=== PATIENT | male | born 1950 | race Caucasian/White ===

== ENCOUNTER 2021-01-02 07:02 | Day surgery (SDC) | payer MEDICARE, OTHER ==
[2021-01-02] MEDS ORDERED: Midazolam 1 MG/ML 2 ML SDV ONE (07:39)
[2021-01-02] MEDS ORDERED: Propofol 200 MG/20 ML SDV ONE (07:39)
[2021-01-02] MEDS ORDERED: fentaNYL 100 MCG/2 ML SDV ONE (07:39)
[2021-01-02] MEDS ORDERED: Sodium Chloride 0.9% 1,000 ML IV SCH (08:00)
--- NOTE | 2021-01-02 11:18 | OR ---
DATE OF PROCEDURE: 01/02/2021 SURGEON: Chucho Yoon MD PROCEDURE: Colonoscopy. FINDINGS: 1. Ascending colon polyp, approximately 8 mm, completely removed using hot snare wire device. 2. Transverse colon polyp, approximately 6 mm, completely removed using hot snare wire device. 3. Descending colon polyp, approximately 3 mm, completely removed using cold biopsy forceps. 4. Sigmoid colon polyp, approximately 3 mm, completely removed using cold biopsy forceps. COMPLICATIONS: None. FUGITIVE INVESTIGATOR: None. ANESTHESIA: MAC. PREOPERATIVE DIAGNOSIS: Screening colonoscopy. POSTOPERATIVE DIAGNOSIS: Screening colonoscopy. RISKS: Risks, benefits, alternatives, and limitations including, but not limited to infection, bleeding, perforation, false positives and false negatives were explained to the patient and he wished to proceed. PROCEDURE IN DETAIL: The patient was placed in left lateral decubitus position. Digital rectal exam was performed without abnormality. Scope was introduced and advanced atraumatically to the ileocecal valve. A photo was taken of this. Scope was brought back to the ascending, transverse, descending colon, and retroflexed. No evidence of old or new blood. No masses. The aforementioned polyps were identified and completely removed. No diverticulosis. No abnormalities on retroflexion. Greater than 8 minutes was spent removing the scope. The prep was acceptable, approximately 90% of the luminal surface could be seen. The patient tolerated the procedure well. Chucho Yoon MD /[id number]
== END 2021-01-02 11:20 | disposition home or self-care (01) ==
LOC: JP.SDS 07:02
PROVIDERS: ATTEND Surgery
DX: Z12.11 Encounter for screening for malignant neoplasm of colon (principal); D12.2 Benign neoplasm of ascending colon; D12.3 Benign neoplasm of transverse colon; D12.5 Benign neoplasm of sigmoid colon; I10 Essential (primary) hypertension; E66.9 Obesity, unspecified; Z88.8 Allergy status to other drugs, medicaments and biological substances
CPT/HCPCS: 45380; 45385; 88305; J2250; J2704; J3010; J7030

== ENCOUNTER 2022-01-18 06:15 | Day surgery (SDC) | payer MEDICARE, OTHER ==
[2022-01-18] MEDS ORDERED: Propofol 200 MG/20 ML SDV ONE ×2 (07:22→08:16)
[2022-01-18] MEDS ORDERED: fentaNYL 50 MCG/ML SDV ONE (07:22)
[2022-01-18] MEDS ORDERED: Midazolam 1 MG/ML 2 ML SDV ONE (07:22)
[2022-01-18] MEDS ORDERED: Sodium Chloride 0.9% 1,000 ML IV SCH (07:30)
== END 2022-01-18 09:47 | disposition home or self-care (01) ==
LOC: JP.SDS 06:15
PROVIDERS: ATTEND Surgery
DX: Z12.11 Encounter for screening for malignant neoplasm of colon (principal); K63.5 Polyp of colon; I10 Essential (primary) hypertension; R73.03 Prediabetes; Z79.899 Other long term (current) drug therapy; Z88.1 Allergy status to other antibiotic agents; Z88.8 Allergy status to other drugs, medicaments and biological substances
CPT/HCPCS: G0105; J2250; J2704; J3010; J7030

== ENCOUNTER 2022-07-27 07:15 | Day surgery (SDC) | payer MEDICARE, OTHER ==
[2022-07-27] MEDS ORDERED: Midazolam 1 MG/ML 2 ML SDV ONE (07:37)
[2022-07-27] MEDS ORDERED: Propofol 200 MG/20 ML SDV ONE (07:37)
[2022-07-27] MEDS ORDERED: fentaNYL 50 MCG/ML SDV ONE (07:37)
[2022-07-27] MEDS ORDERED: Sodium Chloride 0.9% 1,000 ML IV SCH (08:00)
== END 2022-07-27 10:18 | disposition home or self-care (01) ==
LOC: JP.SDS 07:15
PROVIDERS: ATTEND Surgery
DX: Z12.11 Encounter for screening for malignant neoplasm of colon (principal); D12.2 Benign neoplasm of ascending colon; D12.4 Benign neoplasm of descending colon; K57.30 Diverticulosis of large intestine without perforation or abscess without bleeding; I10 Essential (primary) hypertension; R73.03 Prediabetes; F12.20 Cannabis dependence, uncomplicated; Z86.010 Personal history of colon polyps; Z79.899 Other long term (current) drug therapy; Z88.1 Allergy status to other antibiotic agents; Z88.8 Allergy status to other drugs, medicaments and biological substances
CPT/HCPCS: 45385; 88305; J2250; J2704; J3010; J7030